=== PATIENT | male | born 1945 | race Caucasian/White ===

== ENCOUNTER → 2017-08-11 | Outpatient (CLI) | payer MEDICARE ==
--- NOTE | 2017-08-11 10:40 | MR ---
EXAMINATION TYPE: MR knee LT wok con DATE OF EXAM: 08/11/2017 COMPARISON: NONE HISTORY: Left knee pain TECHNIQUE: Multiplanar, multisequence imaging of the left knee is performed without IV contrast. FINDINGS: MEDIAL MENISCUS: Complex tear posterior horn and body medial meniscus. There is pseudo extrusion of t he meniscus. LATERAL MENISCUS: Anterior and posterior horns are intact without tear. CRUCIATE LIGAMENTS: The anterior and posterior cruciate ligaments are intact and unremarkable. COLLATERAL LIGAMENTS: The medial collateral ligament and lateral collateral ligament complex are inta ct and increased fluid surrounding the MCL suggest grade 1 strain EXTENSOR MECHANISM: Visualized quadriceps and patellar tendons are intact. EFFUSION: Small amount of fluid in the suprapatellar bursa. 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 TRICOMPARTMENT SPACES severe narrowing of the medial compartment of the joint space with hypertrophic changes and narrowing of the patellofemoral joint noted. There is marrow edema involving the medial femoral condyle. This may be reactive. 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 BONE MARROW SIGNAL: Diffuse marrow edema involving the medial femoral condyle may be reactive seconda ry to severe arthritic changes.. Marrow signal involving the proximal tibia and patella likely is pos t arthritic. OTHER: Subcutaneous edema noted. IMPRESSION: 1. 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 This likely reactive related t o severe arthritis. Osteochondritis not excluded. Chondromalacia as discussed above. 2. Complex tear posterior body of the medial meniscus with pseudo extrusion of the meniscus. Grade 1 MCL strain. 3. There is a 2 x 1.8 x 5.4 cm popliteal fossa cyst. 4. 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
== END | disposition home or self-care (01) ==
LOC: RADMRIMAIN 09:28
PROVIDERS: ATTEND Orthopaedic Surgery
DX: S83.242A Other tear of medial meniscus, current injury, left knee, initial encounter (principal); M17.12 Unilateral primary osteoarthritis, left knee; M94.262 Chondromalacia, left knee; M71.22 Synovial cyst of popliteal space [Baker], left knee